=== PATIENT | male | born 1945 | race Caucasian/White ===

== ENCOUNTER 2017-05-25 20:30 | Emergency (ER) | payer MEDICARE, OTHER ==
[~2017-05-25] VITALS: Ht 185.4 cm; Wt 100.0 kg
[2017-05-25] MEDS ORDERED: MONT10TA2 PO (21:50)
[2017-05-25] MEDS ORDERED: ADV250INH INH (21:50)
[2017-05-25] MEDS ORDERED: FLOM5CAP PO (21:50)
[2017-05-25] MEDS ORDERED: PATIENT COMMENT (21:50)
[2017-05-25] MEDS ORDERED: ALEV220T26 PO (21:50)
[2017-05-25] MEDS ORDERED: LORA10TA2 PO (21:50)
[2017-05-25] MEDS ORDERED: LOSA25TA8 PO (21:50)
[2017-05-25] MEDS ORDERED: MIDAZOLAM INJ 2 MG/2 ML VIAL (J2250) IV ONE (22:15)
[2017-05-25] MEDS ORDERED: fentaNYL 100 MCG/2 ML INJECTION (J3010) IV ONE (22:15)
--- NOTE | 2017-05-25 23:05 | ROOR ---
Patient Name: Cristóbal Hays Procedure Date: 05/25/2017 10:49 PM Date of : 1945 Age: 72 Gender: Male Note Status: Finalized Procedure: Upper GI endoscopy Indications: Foreign body in the esophagus Providers: Aj HUTCHINSON MD Referring MD: 3. Emergency Dept 3. Emergency Dept Requesting Provider: Medicines: Fentanyl 100 micrograms IV, Midazolam 3 mg IV Complications: No immediate complications. Procedure: Pre-Anesthesia Assessment: - The heart rate, respiratory rate, oxygen saturations, blood pressure, adequacy of pulmonary ventilation, and response to care were monitored throughout the procedure. The Endoscope was introduced through the mouth, and advanced to the second part of duodenum. The upper GI endoscopy was accomplished without difficulty. The patient tolerated the procedure well. Findings: Food was found in the proximal esophagus. Removal was accomplished with the endoscope by gentle pressure and advancement of material into the stomach. A web was found in the proximal esophagus. The exam of the esophagus was otherwise normal. The entire examined stomach was normal. The examined duodenum was normal. Impression: - Food was found in the esophagus. Removal was successful. 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 - The esophagus was otherwise normal. - Normal stomach. - Normal examined duodenum. Recommendation: - Observe patient's clinical course. - Use Prilosec (omeprazole) 40 mg daily. - (script) - To discuss todays findings, and plan for more definite treatment of the esophageal web, my office will call you in the next few days to schedule a follow up appointment. Aj Hutchinson MD Aj HUTCHINSON MD 05/25/2017 11:04:55 PM This report has been signed electronically. Number of Addenda: 0 Note Initiated On: 05/25/2017 10:49 PM Estimated Blood Loss: Estimated blood loss: none.
[2017-05-26 00:15] VITALS: BP 129/71
[2017-05-26] MEDS ORDERED: OMEP40CA2 PO (00:36)
[2017-06-01] MEDS ORDERED: OXYB15TA PO (15:12)
[2017-06-01] MEDS ORDERED: LOSA100T36 PO (15:12)
[2017-06-01] MEDS ORDERED: AMLO10TA2 PO (15:12)
== END 2017-05-26 01:04 | disposition home or self-care (01) ==
LOC: M ED 20:30
DX: T18.120A Food in esophagus causing compression of trachea, initial encounter (principal); X58.XXXA Exposure to other specified factors, initial encounter; Y92.9 Unspecified place or not applicable; Y93.9 Activity, unspecified; Y99.8 Other external cause status; I10 Essential (primary) hypertension; N42.9 Disorder of prostate, unspecified; J45.909 Unspecified asthma, uncomplicated; J30.81 Allergic rhinitis due to animal (cat) (dog) hair and dander; J30.89 Other allergic rhinitis; Z79.51 Long term (current) use of inhaled steroids; Z79.1 Long term (current) use of non-steroidal anti-inflammatories (NSAID); Z79.899 Other long term (current) drug therapy; Z91.018 Allergy to other foods
CPT/HCPCS: 96374; 96375; 99285; J2250; J3010

== ENCOUNTER 2017-06-02 12:28 | Outpatient (CLI) | payer MEDICARE, OTHER ==
[~2017-06-02] VITALS: Ht 182.9 cm; Wt 104.3 kg
[~2017-06-02 12:28] MED LIST: ADV250INH INH; ALEV220T26 PO; AMLO10TA2 PO; FLOM5CAP PO; LORA10TA2 PO; LOSA100T36 PO; LOSA25TA8 PO; MONT10TA2 PO; OMEP40CA2 PO; OXYB15TA PO; PATIENT COMMENT
[2017-06-02] MEDS ORDERED: NS 1,000 ML IV ONE (14:00)
[2017-06-02] MEDS ORDERED: PROPOFOL 200 MG/20 ML VIAL As Ordered ONE (14:16)
[2017-06-02] MEDS ORDERED: LIDOCAINE 2% INJ 100 MG/5 ML SDV (FOR ANES.) As Ordered ONE (14:22)
--- NOTE | 2017-06-02 14:48 | ROOR ---
Patient Name: Cristóbal Hays Procedure Date: 06/02/2017 2:28 PM Date of : 1945 Age: 72 Room: [facility] Gender: Male Note Status: Finalized Procedure: Upper GI endoscopy Indications: Dysphagia, Stenosis of the esophagus, For therapy of esophageal stenosis Providers: Aj MAHAN MD Referring MD: 1. No Referring Physician 1. No Referring Physician, Admin. Requesting Provider: Medicines: Monitored Anesthesia Care Complications: No immediate complications. Procedure: Pre-Anesthesia Assessment: - The heart rate, respiratory rate, oxygen saturations, blood pressure, adequacy of pulmonary ventilation, and response to care were monitored throughout the procedure. The Endoscope was introduced through the mouth, and advanced to the second part of duodenum. The upper GI endoscopy was accomplished without difficulty. The patient tolerated the procedure well. Findings: A web was found in the proximal esophagus. The scope was withdrawn. Dilation was performed with a Tapia dilator with mild resistance at 50 Fr. The dilation site was examined following endoscope reinsertion and showed moderate improvement in luminal narrowing. Estimated blood loss was minimal. The exam of the esophagus was otherwise normal. The entire examined stomach was normal. The examined duodenum was normal. Impression: - Web in the proximal esophagus. Dilated with 50 F tapia dilator with apparent complete fracture of web. - Normal stomach. - Normal examined duodenum. - No specimens collected. Recommendation: - Observe patient's clinical course. - Depending on todays results, additional dilation may be considered in a few weeks. Aj Mahan MD Aj MAHAN MD 06/02/2017 2:48:06 PM This report has been signed electronically. Number of Addenda: 0 Note Initiated On: 06/02/2017 2:28 PM Estimated Blood Loss: Estimated blood loss: none.
[2017-06-02 15:00] VITALS: BP 139/79
== END 2017-06-02 15:05 ==
LOC: M OPP 12:28
PROVIDERS: ATTEND Internal Medicine Gastroenterology
DX: R13.10 Dysphagia, unspecified (principal); K22.2 Esophageal obstruction; Q39.4 Esophageal web; I10 Essential (primary) hypertension; M19.90 Unspecified osteoarthritis, unspecified site; J45.909 Unspecified asthma, uncomplicated; N40.1 Benign prostatic hyperplasia with lower urinary tract symptoms; K21.9 Gastro-esophageal reflux disease without esophagitis; Z91.018 Allergy to other foods; Z91.048 Other nonmedicinal substance allergy status; Z79.899 Other long term (current) drug therapy